=== PATIENT | female | born 1960 | race African-American/Black ===

== ENCOUNTER 2017-07-05 11:43 | Day surgery (SDC) | payer OTHER ==
[2017-07-02 09:57] VITALS: BMI 33.9
[2017-07-05] MEDS ORDERED: DEXAMETHASONE SOD PHOSPHATE 4 MG/1 ML VIAL ONE (12:49)
[2017-07-05] MEDS ORDERED: KETOROLAC TROMETHAMINE 30 MG/1 ML VIAL ONE (12:49)
[2017-07-05] MEDS ORDERED: ONDANSETRON 4 MG/2 ML VIAL IVPUSH PRN ×2 (13:11→14:35)
[2017-07-05] MEDS ORDERED: LACTATED RINGERS SOLUTION 1,000 ML IV SCH (13:15)
[2017-07-05] MEDS ORDERED: MIDAZOLAM HCL 2 MG/2 ML SINGLE DOSE VIAL ONE (14:19)
--- NOTE | 2017-07-05 14:21 | HP ---
Past Medical History - Primary Care Physician PCP:: Romero Horn - Admission Chief Complaint: postmenopausal vaginal bleeding History of Present Illness: 57 yo f wit x of PMB, luciana meraz EM admitted for hysteroscopy D&C History Source: Patient Limitations to Obtaining History: No Limitations - Past Medical History Cardiovascular: Yes: HTN, Hyperlipdemia Pulmonary: Yes: Asthma ...: 3 ...Para: 3 Rheumatology: Yes: Fibromyalgia Endocrine: Yes: Diabetes Mellitus - Past Surgical History Hx Myomectomy: No Hx Transabdominal Cerclage: No Additional Surgical History: knee surgery. cervical spine fusion - Smoking History Smoking history: Current every day smoker Aproximately how many cigarettes per day: 5 - Alcohol/Substance Use Hx Alcohol Use: No Home Medications - Allergies Allergies/Adverse Reactions: Allergies Allergy/AdvReac Type Severity Reaction Status Date / Time No Known Allergies Allergy Verified 07/05/17 12:22 - Home Medications Home Medications: Ambulatory Orders Insulin Glargine,Hum.rec.anlog [Lantus Solostar PEN] 20 units SQ DAILY 07/23/12 Metformin HCl [Glucophage] 500 mg PO BID 07/23/12 Albuterol Sulfate Inhaler - [Ventolin Hfa Inhaler -] 1 - 2 inh PO QID PRN Aspirin [ASA -] 81 mg PO DAILY 07/02/17 Lotrel 5-10 mg Capsule 1 tab PO DAILY 07/02/17 Pregabalin [Lyrica -] 75 mg PO DAILY 07/02/17 Tiotropium [place] [Spiriva] 1 inh IH DAILY 07/02/17 Oxycodone HCl 10 mg PO Q6H PRN 07/05/17 Review of Systems - Review of Systems Constitutional: reports: No Symptoms Eyes: reports: No Symptoms HENT: reports: No Symptoms Neck: reports: No Symptoms Cardiovascular: reports: No Symptoms Respiratory: reports: No Symptoms Gastrointestinal: reports: No Symptoms Genitourinary: reports: No Symptoms Breasts: reports: No Symptoms Reported Musculoskeletal: reports: No Symptoms Integumentary: reports: No Symptoms Neurological: reports: No Symptoms Endocrine: reports: No Symptoms Hematology/Lymphatic: reports: No Symptoms Psychiatric: reports: No Symptoms Physical Exam-HUMAN RESOURCES CLERK Vital Signs: Vital Signs Temperature 97.7 F 07/05/17 12:28 Pulse Rate 93 H 07/05/17 12:28 Respiratory Rate 16 07/05/17 12:28 Blood Pressure 131/81 07/05/17 12:28 O2 Sat by Pulse Oximetry (%) 95 07/05/17 12:28 Constitutional: Yes: Well Nourished, No Distress, Calm Eyes: Yes: WNL, Conjunctiva Clear, EOM Intact HENT: Yes: WNL, Atraumatic, Normocephalic Neck: Yes: WNL, Supple, Trachea Midline Cardiovascular: Yes: WNL, Regular Rate and Rhythm Respiratory: Yes: WNL, Regular, CTA Bilaterally Gastrointestinal: Yes: WNL ...Rectal Exam: Yes: WNL Renal/: Yes: WNL Pelvis: Yes: WNL External Genitalia: Yes: Normal Vaginal Exam: Yes: Bleeding Cervix: Yes: Normal Uterus: Yes: Normal Adnexa: Not Palpable: Left, Right Breast(s): Yes: WNL Musculoskeletal: Yes: WNL Extremities: Yes: WNL Edema: No Integumentary: Yes: WNL Neurological: Yes: WNL, Alert, Oriented ...Motor Strength: WNL Psychiatric: Yes: WNL, Alert, Oriented Problem List - Problem (1) Postmenopausal bleeding Code(s): N95.0 - POSTMENOPAUSAL BLEEDING (2) Thickened endometrium Code(s): R93.8 - ABNORMAL FINDINGS ON DIAGNOSTIC IMAGING OF BODY STRUCTURES Assessment/Plan hsteroscopy D&C, rba discussed
[2017-07-05] MEDS ORDERED: IBUPROFEN 800 MG/8 ML IJ IVPB PRN (14:35)
[2017-07-05] MEDS ORDERED: oxyCODONE HCL 5 MG TABLET PO PRN (14:35)
[2017-07-05] MEDS ORDERED: IBUPROFEN 600 MG TABLET (FP) PO PRN (14:35)
[2017-07-05] MEDS ORDERED: ELECTROLYTE-148 SOLN 1,000 ML IV SCH (14:45)
[2017-07-05 15:22] VITALS: TEMP 98.3
[2017-07-05 16:20] VITALS: BP 98/53; PULSE 88
--- NOTE | 2017-07-07 07:14 | OP ---
DATE OF OPERATION: 07/05/2017 PREOPERATIVE DIAGNOSIS: Postmenopausal bleeding, thickened endometrium, rule out endometrial polyp. POSTOPERATIVE DIAGNOSIS: Postmenopausal bleeding, thickened endometrium, endometrial polyp. PROCEDURE: Hysterectomy, dilatation and curettage, and endometrial polypectomy. SURGEON: Romero Horn MD ANESTHESIA: General. ANESTHESIOLOGIST: Hillary Resendiz MD ESTIMATED BLOOD LOSS: 50 mL. DESCRIPTION OF PROCEDURE: After the patient was taken to the operating room under adequate general anesthesia, examination under anesthesia revealed external genitalia to be normal. Vagina was normal. Cervix was clean, no lesion. Uterus was normal sized. Adnexa, no masses were palpable. Then, with a weighted speculum in the vagina, anterior lip of the cervix was grasped with a single-tooth tenaculum. Endocervical curetting was done. Cervix was slightly dilated with Hegar dilator and sounded to 8 cm. Then, hysteroscope was introduced. Visualization of the endocervical canal appeared to be normal. There was a polyp in the mid body of the uterus approximately 1 cm. There was slight thickening of the lining of the endometrium at the mid body of the uterus, but the fundal areas were atrophic. Both cornual regions were visualized. No other abnormality was found. Then, endometrial polypectomy was done. Then, hysteroscope was withdrawn, and endometrium was curetted. Patient tolerated the procedure well, left the OR in good condition. ROMERO HORN M.D. /[id number]
--- NOTE | 2017-07-07 12:00 | PATH ---
Surgical Pathology Report Patient Name: MARCIANO BILL [facility]. Rec. #: [id number] /Age/Gender: 1960 (Age: 57) / F Account: [id number] Location: [facility] SURGICAL Taken: 07/05/2017 Received: 07/06/2017 Reported: 07/07/2017 Physicians: Romero Horn M.D. Specimen(s) Received A: ENDOCERVICAL CURETTINGS B: ENDOMETRIAL CURETTINGS C: ENDOMETRIAL POLYP Clinical History Hypertension, hyperlipidemia, fibromyalgia, diabetes mellitus and Final Diagnosis A. ENDOCERVIX, CURETTING: BENIGN CERVICAL TISSUE WITH ACUTE AND CHRONIC INFLAMMATION. B. ENDOMETRIUM, CURETTING: DISORDERED PROLIFERATIVE ENDOMETRIUM WITH AREAS SUGGESTIVE OF BENIGN ENDOMETRIAL POLYP, ALONG WITH BENIGN SQUAMOUS EPITHELIUM. C. ENDOMETRIUM, POLYPECTOMY: BENIGN ENDOMETRIAL POLYP. Electronically Signed Jeremy Mena M.D. Gross Description A. Received in formalin labeled "endocervical curettings," is a 1.8 x 1.4 x 0.3 cm aggregate of blood-tinged mucus, possibly containing soft tissue fragments. The formalin is filtered and the specimen is entirely submitted in one cassette. B. Received in formalin labeled "endometrial curettings," is a 2.0 x 1.7 x 0.3 cm aggregate of conde-brown soft tissue fragments. The formalin is filtered and the specimen is entirely submitted in one cassette. C. Received in formalin labeled "endometrial polyp," is a 0.9 x 0.5 x 0.2 cm conde, polypoid portion of soft tissue. The specimen is submitted in toto in one cassette. 07/06/201707/06/2017
== END 2017-07-05 16:26 | disposition home or self-care (01) ==
LOC: JASU-SURG 11:43
PROVIDERS: ATTEND Obstetrics & Gynecology
PROC: 0UB98ZX Excision of Uterus, Via Natural or Artificial Opening Endoscopic, Diagnostic (ICD-10-PCS; principal; 2017-07-05 13:30)
PROC: 0UDB8ZX Extraction of Endometrium, Via Natural or Artificial Opening Endoscopic, Diagnostic (ICD-10-PCS; 2017-07-05 13:30)
DX: N95.0 Postmenopausal bleeding (principal); N84.0 Polyp of corpus uteri
CPT/HCPCS: 88305-TC; 94760

== ENCOUNTER 2018-07-12 07:16 | Inpatient (IN) | payer OTHER ==
[2018-07-12] MEDS ORDERED: CELECOXIB 200 MG CAPSULE PO ONE (07:47)
[2018-07-12] MEDS ORDERED: oxyCODONE HCL 10 MG SUSTAINED ACTING TABLET PO ONE (07:47)
[2018-07-12] MEDS ORDERED: CEFAZOLIN 2 GM/D5W 2 GM/50 ML ML IVPB ONE (07:47)
[2018-07-12] MEDS ORDERED: GABAPENTIN 300 MG CAPSULE (FP) PO ONE (07:47)
[2018-07-12] MEDS ORDERED: TRANEXAMIC ACID 1000 MG/10 ML VIAL IVPUSH ONE (07:47)
[2018-07-12 08:00] VITALS: BMI 32.5
[2018-07-12] MEDS ORDERED: oxyCODONE HCL 10 MG SUSTAINED ACTING TABLET ONE (08:03)
[2018-07-12] MEDS ORDERED: GABAPENTIN 300 MG CAPSULE (FP) ONE (08:04)
[2018-07-12] MEDS ORDERED: CELECOXIB 200 MG CAPSULE ONE (08:04)
[2018-07-12] MEDS ORDERED: LIDOCAINE 1% P/F 10 MG/ML VIAL ONE (08:18)
[2018-07-12] MEDS ORDERED: DEXAMETHASONE SOD PHOSPHATE/PF 10 MG/ML SDV ONE (08:18)
[2018-07-12] MEDS ORDERED: MIDAZOLAM HCL 2 MG/2 ML SINGLE DOSE VIAL ONE ×3 (08:18→09:30)
[2018-07-12] MEDS ORDERED: BUPIVACAINE HCL/PF (5 MG/ML) 30 ML VIAL IJ ONE (08:19)
--- NOTE | 2018-07-12 08:44 | HP ---
Satellite H - Chief Complaint Chief Complaint: right hip pain - Past Medical History Allergies/Adverse Reactions: Allergies Allergy/AdvReac Type Severity Reaction Status Date / Time No Known Allergies Allergy Verified 06/27/18 11:59 Cardiovascular: Yes: HTN, Hyperlipdemia Pulmonary: Yes: Asthma Rheumatology: Yes: Fibromyalgia Endocrine: Yes: Diabetes Mellitus - Current Medications Current Medications: Home Medications Medication Instructions Recorded Insulin Glargine,Hum.rec.anlog 20 units SQ DAILY 07/23/12 [Lantus Solostar PEN] metFORMIN HCL [Glucophage] 500 mg PO DAILY 07/23/12 Albuterol Sulfate Inhaler - 1 - 2 inh PO QID PRN 07/02/17 [Ventolin Hfa Inhaler -] Aspirin [ASA -] 81 mg PO DAILY 07/02/17 Pregabalin [Lyrica -] 75 mg PO HS 07/02/17 Oxycodone HCl 10 mg PO Q6H PRN 07/05/17 Amlodipine Besylate/Benazepril 1 each PO DAILY 06/27/18 [Lotrel 5-10 mg Capsule] Satellite Physical Exam - Physical Examination Vital Signs: Vital Signs Period Temp Pulse Resp BP Sys/Laura Pulse Ox Last 24 Hr 97.4 F 100 16 122/75 General Appearance: Well Nourished, Well Developed, Alert & Oriented x3 ENT: Clear Lung: Normal air movement Heart: Regular rate & rhythm Extremities: Other (right hip- + ttp, decr rom, nvi xrays show grade 4 hip djd) Neurological: Intact, Alert, Oriented Satellite Impression/Plan - Impression/Plan Impression: right hip djd Operative Procedure: right kit thr Date to be Performed: 07/12/18
[2018-07-12] MEDS ORDERED: TRANEXAMIC ACID 1000 MG/10 ML VIAL ONE (09:04)
[2018-07-12] MEDS ORDERED: VANCOMYCIN 1,000 MG VIAL (RESTRICTED TO ID ONLY) IVPB ONE (09:48)
[2018-07-12] MEDS ORDERED: ALBUTEROL SO4 8 GM HFA INHALER IH PRN (10:08)
[2018-07-12] MEDS ORDERED: ONDANSETRON 4 MG/2 ML VIAL IVPUSH PRN ×2 (10:09→11:38)
[2018-07-12] MEDS ORDERED: MAG HYDROX/AL HYDROX/SIMETH 30 ML UNIT-DOSE CUP PO PRN (10:09)
[2018-07-12] MEDS ORDERED: MAGNESIUM HYDROX 2400MG/30ML ORAL SUSPENSION 30 ML CUP PO PRN (10:09)
--- NOTE | 2018-07-12 10:11 | OP ---
Operative Note - Note: Operative Date: 07/12/18 ([place]) Pre-Operative Diagnosis: right hip djd Operation: right kit thr Post-Operative Diagnosis: Same as Pre-op Surgeon: Sawyer Prado Pottery Decoration Designer: Levar Ambrosio Anesthesiologist/CESSPOOL CLEANER: Leanne Sandoval Anesthesia: Spinal, Local Specimens Removed: femoral head Estimated Blood Loss (mls): 150 Operative Report Dictated: Yes
[2018-07-12] MEDS ORDERED: LACTATED RINGERS SOLUTION 1,000 ML IV SCH (10:15)
--- NOTE | 2018-07-12 10:44 | SPEC ---
DATE OF OPERATION: 07/12/2018 PREOPERATIVE DIAGNOSIS: Degenerative joint disease right hip. POSTOPERATIVE DIAGNOSIS: Degenerative joint disease right hip. PROCEDURE PERFORMED: Right total hip replacement with robotic-assisted navigation (MAKOplasty). SURGICAL ATTENDING: Sawyer Prado MD OIL BURNER INSTALLER: LENORA Shah ANESTHESIA: Regional and spinal. CLOSURE: A Casar total hip system with a number 8 Accolade II femoral stem, a standard 36-mm ceramic femoral head, a 54 Trident II Press-Fit acetabulum; Number 1 Vicryl for fascia, 0 and 2-0 subcutaneous, 3-0 V-Loc for skin, 4-0 undyed Vicryl for pin sites. ESTIMATED BLOOD LOSS: Less than 100 mL. COMPLICATIONS: None. CONDITION: To the recovery room in stable condition. DESCRIPTION OF PROCEDURE: The patient was taken to the operating room on July 12, 2018. Regional and spinal anesthesia was administered by the anesthesiologist. IV Kefzol and TXA were administered prophylactically prior to the case. The patient was placed in the lateral decubitus position will all prominences well-padded. The right hip area was prepped and draped in the usual sterile fashion. Using 3 small stab incisions over the iliac crest, 3 threaded pins were drilled in power fashion through the 2 tables of the crest. These pins were fastened and the navigation array for the Kristian navigation system. Next, a 12 to 15-cm curved longitudinal incision over the posterolateral aspect of the greater trochanter was incised. Hemostasis was achieved with Bovie cautery. Sharp dissection was carried down to level of the fascia. The fascia was opened the entire length of the incision, spreading the fibers of the gluteus shawn in the direction of origin. A Charnley retractor was placed in this layer. Care was taken not to impale the sciatic nerve. The short external rotators were detached off the insertion of the greater trochanter and peeled off the capsule. A posterior capsulotomy was then performed. A check point was malleted into the greater trochanter and a point on the inferior pole of the patella was obtained as well. These 2 points were used to assess the preoperative offset and limb lengths of the hip. The hip was then dislocated. The femoral neck was then osteotomized down to the appropriate level as directed by the navigation device. Anterior and posterior retractors were placed, exposing the acetabulum. A circumferential labral excision was performed. A check point was malleted into the acetabulum as well. Multiple sites inside the acetabulum and around the rim were utilized to register the acetabulum with the navigation device. An excellent registration of less than 0.5 mm was obtained. The hip was then reamed with the appropriate reamer down to the appropriate depth, with the appropriate orientation and version as assessed on our preoperative plan for this patient. The reamer was removed and the acetabulum was inspected to have good bleeding surfaces throughout. The real acetabular cup was then malleted down into place, with the holes in the appropriate position, until an excellent fixation was obtained. No screws were necessary. The navigation device ensured appropriate orientation and version, with the depth as predetermined. The appropriate liner was then clipped into place. Attention was directed to the femur. The proximal femur was prepared by use a box chisel, a canal finder and serial broaches until the broach achieved excellent rigidity in the proximal femur with the appropriate version being applied. A calcar planer was used to smooth off the calcar flush with the trial components. A trial reduction with the appropriate head was done, and the hip was reduced. The hip was taken through a range of motion from full extension with external rotation to marked flexion, and was stable at 90 degrees of flexion. It was stable to marked abduction and internal rotation, with a positive hang test and negative telescoping. Limb lengths were ascertained visually as well as with the navigation device to be within the targeted range for this patient. The trial component was removed. The real component was then malleted into place. The head was cold welded to the trunnion, and the hip was reduced. Range of motion, stability and limb lengths were as described in the trial component. Then the hip was pulse antibiotic irrigated. Vancomycin powder was placed in the hip joint. The capsule was closed. The fascia was then closed as well using number 1 Vicryl interrupted suture, 0 and 2-0 subcutaneous, and 3-0 V-Loc for the skin. 4-0 undyed Vicryl was used to close the pin sites after the pins were removed. All check points were also removed. Sterile Aquacel dressing was applied. The patient was awakened from anesthesia and transferred into the supine position. Bilateral SCDs and an abduction pillow were placed. X-rays revealed excellent position of the components. The patient was transferred to the recovery room in stable condition, with no complications. Estimated blood loss was less than 100 mL. Adán [id number]
[2018-07-12] MEDS ORDERED: ACETAMINOPHEN 325 MG TABLET (FP) ONE (10:57)
[2018-07-12] MEDS ORDERED: ACETAMINOPHEN 650 MG/20.3 ML ORAL SOLUTION (CUPS) PO ONE (11:30)
[2018-07-12] MEDS ORDERED: PROMETHAZINE HCL 25 MG/1 ML VIAL IVPUSH PRN (11:38)
[2018-07-12] MEDS ORDERED: oxyCODONE HCL 5 MG TABLET PO PRN (11:38)
[2018-07-12] MEDS ORDERED: ACETAMINOPHEN 325 MG TABLET (FP) PO SCH (11:45)
[2018-07-12] MEDS: oxyCODONE HCL 5 MG TABLET PO PRN ×3 (14:30→20:22)
[2018-07-12] MEDS: CEFAZOLIN 2 GM/D5W 2 GM/50 ML ML IVPB SCH (16:40)
[2018-07-12] MEDS: INSULIN SLIDING SCALE (NOVOLOG) 1 VIAL SQ SCH ×2 (17:28→21:22)
[2018-07-12] MEDS: ACETAMINOPHEN 325 MG TABLET (FP) PO SCH (17:31)
[2018-07-12] MEDS: PREGABALIN 25 MG CAPSULE PO SCH (21:22)
[2018-07-12] MEDS: oxyCODONE HCL 10 MG SUSTAINED ACTING TABLET PO SCH (21:23)
[2018-07-12] MEDS: SENNOSIDES/DOCUSATE COMBO (SENNA PLUS) TABLET (UD) PO SCH (21:24)
[2018-07-13] MEDS: ACETAMINOPHEN 325 MG TABLET (FP) PO SCH ×4 (00:44→17:50)
[2018-07-13] MEDS: CEFAZOLIN 2 GM/D5W 2 GM/50 ML ML IVPB SCH (00:45)
[2018-07-13] MEDS: oxyCODONE HCL 5 MG TABLET PO PRN ×4 (04:00→18:40)
[2018-07-13 08:06] LABS: HEMATOCRIT 44.7 % (32.4-45.2); HEMOGLOBIN 15.1 GM/dl (10.7-15.3); MCH 32.8 pg (25.7-33.7); MCHC 33.7 g/dl (32.0-36.0); MEAN CELL VOLUME 97.1 fl (80-96); MEAN PLT VOLUME 8.7 fl (7.5-11.1); PLATELET COUNT 279 K/MM3 (134-434); RDW 11.9 % (11.6-15.6); WHITE BLOOD COUNT 11.6 K/mm3 (4.0-10.8)
[2018-07-13] MEDS: INSULIN (LEVEMIR) 100 UNITS/ML UNITS SQ SCH (08:28)
[2018-07-13] MEDS: ASPIRIN 325 MG TABLET PO SCH (08:29)
[2018-07-13] MEDS: metFORMIN HCL 500 MG TABLET (FP) PO SCH (08:31)
[2018-07-13] MEDS: INSULIN SLIDING SCALE (NOVOLOG) 1 VIAL SQ SCH ×5 (08:34→22:00)
--- NOTE | 2018-07-13 08:35 | PN ---
Progress Note (short form) - Note Progress Note: Ortho Pt seen and examined s/p right kit thr pod #1 Selected Entries 07/13/18 06:00 Temperature 98.3 F Pulse Rate 88 Respiratory 18 Rate Blood Pressure 101/58 L Laboratory Tests 07/13/18 07:00 WBC 11.6 H Hgb 15.1 Hct 44.7 Plt Count 279 dressing c/d/i, calf soft, nt nvi a/p PT hip precautions dvt ppx pain control d/c home tomorrow if stable
[2018-07-13] MEDS ORDERED: PATIENT'S OWN MEDICATION (NON-FORMULARY) (Insulin Glargine,Hum.Rec.Anlog 20 UNITS) SQ SCH (10:00)
[2018-07-13] MEDS ORDERED: PATIENT'S OWN MEDICATION (NON-FORMULARY) (Amlodipine Besylate/Benazepril [Lotrel 5-10 Mg C PO SCH (10:00)
[2018-07-13] MEDS: amLODIPine BESYLATE 5 MG TABLET (FP) PO SCH (10:41)
[2018-07-13] MEDS: LISINOPRIL 10 MG TABLET (FP) PO SCH (10:41)
[2018-07-13] MEDS: SENNOSIDES/DOCUSATE COMBO (SENNA PLUS) TABLET (UD) PO SCH ×2 (10:41→21:14)
[2018-07-13] MEDS: oxyCODONE HCL 10 MG SUSTAINED ACTING TABLET PO SCH ×2 (10:41→21:14)
[2018-07-13] MEDS: MULTIVITAMINS (DAILY MVI) TABLET (FP) PO SCH (10:41)
[2018-07-13] MEDS: PANTOPRAZOLE 40 MG TABLET (FP) PO SCH (10:41)
--- NOTE | 2018-07-13 15:10 | PN ---
Progress Note (short form) - Note Progress Note: Anesthesia post op note, POD#1 S/P right total hip replacement. Under spinal and regional. pat seen and examined. VSS. Ambulating, PT. Pain well controlled. no apparent post anesthesia complications.
[2018-07-13] MEDS: PREGABALIN 25 MG CAPSULE PO SCH (21:14)
[2018-07-14] MEDS: oxyCODONE HCL 5 MG TABLET PO PRN ×3 (01:12→09:36)
[2018-07-14 06:03] VITALS: BP 122/57; PULSE 73; TEMP 99.3
[2018-07-14] MEDS: ACETAMINOPHEN 325 MG TABLET (FP) PO SCH ×2 (06:29)
[2018-07-14] MEDS: INSULIN SLIDING SCALE (NOVOLOG) 1 VIAL SQ SCH ×2 (06:29→10:50)
[2018-07-14 07:50] LABS: HEMATOCRIT 43.8 % (32.4-45.2); HEMOGLOBIN 14.3 GM/dl (10.7-15.3); MCHC 32.7 g/dl (32.0-36.0); MEAN CELL VOLUME 98.2 fl (80-96); MEAN PLT VOLUME 8.8 fl (7.5-11.1); PLATELET COUNT 250 K/MM3 (134-434); RBC 4.46 M/mm3 (3.60-5.2); RDW 12.1 % (11.6-15.6); WHITE BLOOD COUNT 10.4 K/mm3 (4.0-10.8)
--- NOTE | 2018-07-14 08:28 | PN ---
Progress Note (short form) - Note Progress Note: Ortho Pt seen and examined s/p right kit thr pod #2 Selected Entries 07/14/18 06:00 Temperature 99.3 F Pulse Rate 73 Respiratory 18 Rate Blood Pressure 122/57 L Laboratory Tests 07/14/18 07:00 WBC 10.4 Hgb 14.3 Hct 43.8 Plt Count 250 dressing c/d/i, calf soft, nt nvi a/p PT hip precautions dvt ppx pain control d/c home today f/u in 1 week
--- NOTE | 2018-07-14 08:29 | DS ---
Physical Examination Vital Signs: Vital Signs Temperature 99.3 F 07/14/18 06:00 Pulse Rate 73 07/14/18 06:00 Respiratory Rate 18 07/14/18 06:00 Blood Pressure 122/57 L 07/14/18 06:00 O2 Sat by Pulse Oximetry (%) 97 07/14/18 07:50 Labs: CBC, BMP 07/14/18 07:00 Discharge Summary Reason For Visit: OSTEOARTHRITIS Procedures: Principal: right thr Hospital Course: admitted for elective right kit thr, uneventful post-op, stable for d/c Condition: Good - Instructions Diet, Activity, Other Instructions: Post-op Instructions-Total Hip Replacement Call the office for a follow-up appointment in 1 week - [phone] Aspirin 325mg daily for 6 weeks. Pain medication was sent into your pharmacy. Apply Graduated Compression Stockings (TEDs) to both lower extremities- remove daily for hygiene ONLY Apply Sequential Compression Device (SCDs) to both Lower extremities remove for PT and hygiene ONLY Apply cold packs to affected area for 15 minutes every 2 hours. Physical Therapist will come to your home for the first 5 days. You will be set up with outpatient PT at your first post-operative visit. Patient may ambulate as tolerated-encourage self care (at least every 2-3 hours while awake) with walker or cane Maintain Aquacel (waterproof) dressing to operative wound (will be removed by surgeon at first office visit) Shower with Aquacel dressing in place-if Aquacel integrity compromised, remove and apply dry sterile dressing and notify Orthopedist. DO NOT SHOWER unless Orthopedists approves without Aquacel dressing CONTACT THE OFFICE FOR ANY CHANGE IN YOUR CONDITION (for example-fever greater than 102 degrees, excessive bleeding from operative site, purulent drainage, severe swelling or pain) GO TO THE EMERGENCY ROOM IF THERE IS A MEDICAL EMERGENCY Hip Precautions: * Keep a rolled towel under affected heel while in bed or chair (to keep knee in extension) * Dependent upon approach: * Posterior - do not cross legs; do not sit on low chairs or toilets. * If you have any questions, please do not hesitate to call the office - . Referrals: Sawyer Prado MD [Staff Physician] - Disposition: VNS/HOME HEALTH CARE - Home Medications Comprehensive Discharge Medication List: Ambulatory Orders Insulin Glargine,Hum.rec.anlog [Lantus Solostar PEN -] 20 units SQ DAILY metFORMIN HCL [Glucophage -] 500 mg PO DAILY 07/23/12 Albuterol Sulfate Inhaler - [Ventolin HFA Inhaler -] 1 - 2 inh PO QID PRN Pregabalin [Lyrica -] 75 mg PO HS 07/02/17 Oxycodone HCl 10 mg PO Q6H PRN 07/05/17 Amlodipine Besylate/Benazepril [Lotrel 5-10 mg Capsule] 1 each PO DAILY Aspirin [ASA -] 325 mg PO DAILY@0800 tablet 07/12/18 Oxycodone HCl/Acetaminophen [Percocet 5-325 mg Tablet -] 1 - 2 tab PO Q6H #50 tab MDD 8 07/12/18
[2018-07-14] MEDS: metFORMIN HCL 500 MG TABLET (FP) PO SCH (08:37)
[2018-07-14] MEDS: INSULIN (LEVEMIR) 100 UNITS/ML UNITS SQ SCH (08:37)
[2018-07-14] MEDS: ASPIRIN 325 MG TABLET PO SCH (08:37)
[2018-07-14] MEDS: SENNOSIDES/DOCUSATE COMBO (SENNA PLUS) TABLET (UD) PO SCH (09:34)
[2018-07-14] MEDS: PANTOPRAZOLE 40 MG TABLET (FP) PO SCH (09:35)
[2018-07-14] MEDS: MULTIVITAMINS (DAILY MVI) TABLET (FP) PO SCH (09:35)
[2018-07-14] MEDS: LISINOPRIL 10 MG TABLET (FP) PO SCH (09:36)
[2018-07-14] MEDS: amLODIPine BESYLATE 5 MG TABLET (FP) PO SCH (09:36)
[2018-07-14] MEDS: oxyCODONE HCL 10 MG SUSTAINED ACTING TABLET PO SCH (09:37)
--- NOTE | 2018-07-15 19:41 | PATH ---
Surgical Pathology Report Patient Name: MARCIANO BILL Med. Rec. #: [id number] /Age/Gender: 1960 (Age: 58) / F Account: [id number] Location: REPLACED BY [facility] Taken: 07/12/2018 Received: 07/12/2018 Reported: 07/15/2018 Physicians: Sawyer Prado M.D. Specimen(s) Received RIGHT FEMORAL HEAD Clinical History Osteoarthritis right hip Final Diagnosis BONE, FEMORAL HEAD, RIGHT, TOTAL HIP REPLACEMENT MAKOPASTY: BONE WITH DEGENERATIVE JOINT DISEASE. Electronically Signed Veronica Marie M.D. Gross Description Received in formalin, labeled "femoral head right," is a 4.7 x 4.7 x 3.8 cm. femoral head with a 0.4 cm in length portion of femoral neck attached. The margin of resection is smooth. No areas of eburnation are identified. The articular surface is conde-yellow and focally granular. The underlying trabecular bone is yellow and hard. A customer field representative section is submitted in one cassette, following decalcification. 07/14/201807/14/2018
== END 2018-07-14 11:12 | disposition home health service (06) | DRG 470 ==
LOC: FM/S 07:16
PROVIDERS: ADMIT Orthopaedic Surgery; ATTEND Orthopaedic Surgery
PROC: 8E0W0CZ Robotic Assisted Procedure of Trunk Region, Open Approach (ICD-10-PCS; 2018-07-12)
PROC: 0SR903A Replacement of Right Hip Joint with Ceramic Synthetic Substitute, Uncemented, Open Approach (ICD-10-PCS; principal; 2018-07-12 09:10)
DX: M16.11 Unilateral primary osteoarthritis, right hip (principal); I10 Essential (primary) hypertension; E78.5 Hyperlipidemia, unspecified; J45.909 Unspecified asthma, uncomplicated; E11.9 Type 2 diabetes mellitus without complications; M79.7 Fibromyalgia
CPT/HCPCS: 36415; 73502-TC-RT; 82962; 85027; 86803; 87389; 88305-TC; 88311-TC; 94760; 97116-GP; 97162-GP

== ENCOUNTER 2022-04-06 08:53 | Emergency (ER) | payer OTHER ==
[2022-04-06 09:00] VITALS: TEMP 97.2; BMI 30.9
[2022-04-06] MEDS ORDERED: ACETAMINOPHEN 325 MG TABLET (FP) PO ONE (09:59)
[2022-04-06] MEDS ORDERED: ACETAMINOPHEN 325 MG TABLET (FP) ONE (11:43)
[2022-04-06 12:09] VITALS: BP 148/69; PULSE 75; RESP 20
== END 2022-04-06 12:10 | disposition home or self-care (01) ==
LOC: JERFT 08:53
DX: M79.671 Pain in right foot (principal)
CPT/HCPCS: 70450-TC; 72125-TC; 73610-TC-RT-FY; 73630-TC-RT-FY; 99284-25

== ENCOUNTER 2023-05-18 15:38 | Emergency (ER) | payer OTHER ==
[2023-05-18 15:45] VITALS: PULSE 91; RESP 18; TEMP 98; BMI 28.2
[2023-05-18] MEDS ORDERED: SODIUM CHLORIDE 0.9% 1000 ML INFUS.BAG IV ONE ×2 (17:13→20:44)
[2023-05-18] MEDS ORDERED: METOCLOPRAMIDE HCL INJECTION 10 MG/2 ML VIAL IVPUSH ONE (17:14)
[2023-05-18] MEDS ORDERED: ACETAMINOPHEN 1000 MG/100 ML BAG IVPB ONE (17:14)
[2023-05-18] MEDS ORDERED: ACETAMINOPHEN INJECTION 100 ML IVPB ONE (17:20)
[2023-05-18] MEDS ORDERED: METOCLOPRAMIDE HCL INJECTION 10 MG/2 ML VIAL ONE (17:20)
[2023-05-18 17:35] LABS: BASO % 0.7 % (0-2.0); HEMATOCRIT 47.7 % (32.4-45.2); HEMOGLOBIN 16.3 GM/dL (10.7-15.3); LYMPH % 19.5 % (8-40); MCH 32.3 pg (25.7-33.7); MCHC 34.1 g/dl (32.0-36.0); MEAN CELL VOLUME 94.8 fl (80-96); NEUT % 72.8 % (42.8-82.8); PLATELET COUNT 248 10^3/uL (134-434); RBC 5.03 M/mm3 (3.60-5.2); RDW 13.1 % (11.6-15.6); WHITE BLOOD COUNT 14.7 K/mm3 (4.0-10.0)
[2023-05-18 17:59] LABS: POTASSIUM 3.6 mmol/L (3.5-5.1)
[2023-05-18 18:01] LABS: CALCIUM 9.1 mg/dL (8.5-10.1)
[2023-05-18 18:02] LABS: ALBUMIN 3.7 g/dl (3.4-5.0)
[2023-05-18 18:04] LABS: CREATININE 1.3 mg/dL (0.55-1.3)
[2023-05-18 18:06] LABS: BILIRUBIN,TOTAL 1.1 mg/dL (0.2-1); TOT PROT 7.2 g/dl (6.4-8.2)
[2023-05-18 19:45] LABS: EPI CELLS >36 /uL (0-25.1); HYALINE CASTS 3 /uL (0-3.1); PH,URINE 5.5 (5.0-8.0); URINE APPEARANCE CLEAR; URINE BACTERIA 526 /uL (0-1359); URINE BILIRUBIN NEGATIVE (NEGATIVE); URINE COLOR DK YELLOW; URINE GLUCOSE (UA) NEGATIVE (NEGATIVE); URINE KETONE TRACE (NEGATIVE); URINE LEUK ESTERASE NEGATIVE (NEGATIVE); URINE NITRITE NEGATIVE (NEGATIVE); URINE PROTEIN 1+ (NEGATIVE); URINE RBC 15 /uL (0-23.9); URINE WBC 29 /uL (0-25.8)
[2023-05-18 21:18] VITALS: BP 100/64
== END 2023-05-18 21:24 | disposition home or self-care (01) ==
LOC: JER 15:38
PROC: 3E033NZ Introduction of Analgesics, Hypnotics, Sedatives into Peripheral Vein, Percutaneous Approach (ICD-10-PCS; principal; 2023-05-18)
PROC: 3E033GC Introduction of Other Therapeutic Substance into Peripheral Vein, Percutaneous Approach (ICD-10-PCS; 2023-05-18)
DX: R19.7 Diarrhea, unspecified (principal); E86.0 Dehydration; B34.9 Viral infection, unspecified; Z20.822 Contact with and (suspected) exposure to COVID-19
CPT/HCPCS: 0241U-QW; 36415; 80053; 81003; 82150; 83605; 83690; 85025; 87086; 96374; 96375; 99284-25

== ENCOUNTER 2023-05-25 13:05 | Inpatient (IN) | payer OTHER ==
[2023-05-25 14:25] LABS: INR 1.09 (0.83-1.09); PROTHROMBIN TIME (PATIENT) 12.6 SEC (9.7-13.0)
[2023-05-25 14:28] LABS: HEMATOCRIT 40.3 % (32.4-45.2); HEMOGLOBIN 14.2 G/dL (10.7-15.3); MCH 34.6 pg (25.7-33.7); MCHC 35.2 g/dl (32.0-36.0); MEAN CELL VOLUME 98.4 fl (80-96); MEAN PLT VOLUME 8.1 fl (7.5-11.1); PLATELET COUNT 306.3 10^3/uL (134-434); RDW 13.4 % (11.6-15.6); WHITE BLOOD COUNT 8.8 10^3/uL (4.0-10.8)
[2023-05-25 14:31] LABS: ALBUMIN 3.6 g/dl (3.4-5.0); BILIRUBIN,TOTAL 0.6 mg/dl (0.2-1); CREATININE 0.7 mg/dl (0.6-1.3); POTASSIUM 3.7 mmol/L (3.5-5.1); TOT PROT 5.9 g/dl (6.4-8.2)
[2023-05-25 14:34] LABS: PLATELET ESTIMATE ADEQUATE
[2023-05-25 18:26] VITALS: RESP 18
[2023-05-25] MEDS ORDERED: DOCUSATE SODIUM 100 MG CAPSULE (FP) PO PRN (23:15)
[2023-05-25] MEDS ORDERED: SODIUM CHLORIDE 1,000 ML IV SCH (23:15)
[2023-05-26] MEDS ORDERED: DEXTROSE 5%-NORMAL SALINE 1,000 ML IV SCH (00:30)
[2023-05-26] MEDS: ACETAMINOPHEN 1000 MG/100 ML BAG IVPB PRN ×2 (00:41→17:53)
[2023-05-26] MEDS ORDERED: PATIENT'S OWN MEDICATION (NON-FORMULARY) (Fluticasone/Salmeterol [Advair Hfa 230-21 Mcg In PO PRN (01:22)
[2023-05-26] MEDS ORDERED: PATIENT'S OWN MEDICATION (NON-FORMULARY) (Linaclotide [Linzess] 290 MCG Capsule) PO PRN (01:22)
[2023-05-26] MEDS ORDERED: CETIRIZINE HCL OU PRN (01:32)
[2023-05-26] MEDS ORDERED: INSULIN SLIDING SCALE (NOVOLOG) 1 VIAL SQ SCH (07:00)
[2023-05-26 07:48] VITALS: BMI 28.6
[2023-05-26] MEDS ORDERED: IPRATROPIUM/ALBUTEROL (COMBIVENT) RESPIMAT 20-100 MCG IH PRN (08:07)
[2023-05-26] MEDS ORDERED: PATIENT'S OWN MEDICATION (NON-FORMULARY) (Mirabegron [Myrbetriq] 25 MG Tab.Er.24h) PO SCH (10:00)
[2023-05-26] MEDS ORDERED: PATIENT'S OWN MEDICATION (NON-FORMULARY) (Icosapent Ethyl [Vascepa] 1 GM Capsule) PO SCH (10:00)
[2023-05-26] MEDS ORDERED: PATIENT'S OWN MEDICATION (NON-FORMULARY) (Cyclosporine [Restasis] 1 EACH Droperette) OU SCH (10:00)
[2023-05-26 10:06] LABS: BASO % 1.1 % (0-2.0); EOS % 2.6 % (0-4.5); HEMATOCRIT 41.1 % (32.4-45.2); HEMOGLOBIN 13.9 GM/dL (10.7-15.3); LYMPH % 20.4 % (8-40); MCH 32.4 pg (25.7-33.7); MCHC 33.7 g/dl (32.0-36.0); MEAN PLT VOLUME 7.8 fl (7.5-11.1); MONO % 6.5 % (3.8-10.2); NEUT % 69.4 % (42.8-82.8); PLATELET COUNT 354 10^3/uL (134-434); RBC 4.28 M/mm3 (3.60-5.2); RDW 12.8 % (11.6-15.6); WHITE BLOOD COUNT 7.5 K/mm3 (4.0-10.0)
[2023-05-26] MEDS: PANTOPRAZOLE 40 MG TABLET PO SCH (10:44)
[2023-05-26] MEDS: NEBIVOLOL 10 MG TABLET (FP) PO SCH (10:44)
[2023-05-26 11:10] LABS: CALCIUM 9.2 mg/dL (8.5-10.1); MAGNESIUM 2.1 mg/dL (1.8-2.4)
[2023-05-26 11:12] LABS: PHOSPHOROUS 2.9 mg/dL (2.5-4.9)
[2023-05-26 11:13] LABS: CREATININE 0.6 mg/dL (0.55-1.3)
[2023-05-26 11:24] LABS: BLOOD UREA NITROGEN 6.8 mg/dL (7-18)
[2023-05-26] MEDS: INSULIN (NOVOLOG) ASPART 100 UNITS/ML 10ML VIAL SQ SCH ×3 (11:45→21:59)
[2023-05-26] MEDS ORDERED: MAGNESIUM CITRATE 300 ML BOTTLE PO ONE ×2 (15:30→22:00)
[2023-05-26] MEDS: ATORVASTATIN CA 10 MG TABLET (FP) PO SCH ×2 (21:55→22:00)
[2023-05-26] MEDS ORDERED: ACETAMINOPHEN 325 MG TABLET (FP) PO PRN (23:15)
[2023-05-27 05:45] VITALS: BP 149/79; PULSE 59; TEMP 99.1
[2023-05-27] MEDS: INSULIN (NOVOLOG) ASPART 100 UNITS/ML 10ML VIAL SQ SCH (07:04)
[2023-05-27 08:49] LABS: HEMATOCRIT 41.4 % (32.4-45.2); HEMOGLOBIN 13.9 GM/dL (10.7-15.3); MCH 32.5 pg (25.7-33.7); MCHC 33.5 g/dl (32.0-36.0); MEAN CELL VOLUME 96.9 fl (80-96); MEAN PLT VOLUME 8.4 fl (7.5-11.1); PLATELET COUNT 353 10^3/uL (134-434); RBC 4.27 M/mm3 (3.60-5.2); RDW 12.8 % (11.6-15.6); WHITE BLOOD COUNT 7.7 K/mm3 (4.0-10.0)
[2023-05-27 08:58] LABS: POTASSIUM 3.9 mmol/L (3.5-5.1)
[2023-05-27 09:13] LABS: ALBUMIN 3.2 g/dl (3.4-5.0); BLOOD UREA NITROGEN 6.4 mg/dL (7-18); CALCIUM 8.8 mg/dL (8.5-10.1)
[2023-05-27 09:16] LABS: CREATININE 0.6 mg/dL (0.55-1.3)
[2023-05-27 09:18] LABS: BILIRUBIN,TOTAL 0.8 mg/dL (0.2-1); TOT PROT 6.3 g/dl (6.4-8.2)
[2023-05-27] MEDS: PANTOPRAZOLE 40 MG TABLET PO SCH (09:58)
[2023-05-27] MEDS: NEBIVOLOL 10 MG TABLET (FP) PO SCH (09:59)
== END 2023-05-27 10:59 | disposition home or self-care (01) | DRG 394 ==
LOC: FER 13:05 → J6S 13:06
PROVIDERS: ADMIT Internal Medicine; ATTEND Internal Medicine
DX: K63.89 Other specified diseases of intestine (principal); S36.892A Contusion of other intra-abdominal organs, initial encounter; I10 Essential (primary) hypertension; E78.5 Hyperlipidemia, unspecified; D12.6 Benign neoplasm of colon, unspecified; K63.5 Polyp of colon; K59.03 Drug induced constipation; I48.91 Unspecified atrial fibrillation; E11.9 Type 2 diabetes mellitus without complications; T40.605A Adverse effect of unspecified narcotics, initial encounter; J44.9 Chronic obstructive pulmonary disease, unspecified; E66.8 Other obesity; Z68.28 Body mass index [BMI] 28.0-28.9, adult; M79.7 Fibromyalgia; X58.XXXA Exposure to other specified factors, initial encounter; Y93.9 Activity, unspecified; Y92.9 Unspecified place or not applicable; Y99.9 Unspecified external cause status
CPT/HCPCS: 36415; 74177-TC; 80048; 80053; 81003; 81015; 82378; 82962; 83735; 84100; 85025; 85027; 85610; 85730; 86301; 86304; 86850; 86900; 86901; 87086; 93005; 93010; 99285-25; J3535; Q9967